=== PATIENT | female | born 1955 | race Asian ===

== ENCOUNTER 2018-05-30 07:11 | Day surgery (SDC) | payer SELFPAY ==
[2018-05-27 13:23] VITALS: BMI 26.0
[2018-05-30] MEDS ORDERED: EPINEPHrine/PF 1 MG/1 ML (1:1,000) AMPULE ONE (08:05)
[2018-05-30] MEDS ORDERED: LIDOCAINE HCL 1%, 10 MG/ML (20ML VIAL) ONE ×2 (08:05→08:09)
[2018-05-30] MEDS ORDERED: HALOPERIDOL LACTATE 5 MG/ML ONE (09:38)
[2018-05-30] MEDS ORDERED: MIDAZOLAM HCL 2 MG/2 ML SINGLE DOSE VIAL ONE (09:38)
[2018-05-30] MEDS ORDERED: PROPOFOL 20 ML ONE ×3 (09:42)
[2018-05-30] MEDS ORDERED: SUCCINYLCHOLINE CHLORIDE 200 MG/10 ML VIAL ONE (09:42)
[2018-05-30] MEDS ORDERED: ROCURONIUM BROMIDE 50 MG/5 ML VIAL ONE (09:42)
[2018-05-30] MEDS ORDERED: fentaNYL CITRATE 250 MCG/5 ML VIAL ONE (09:42)
[2018-05-30] MEDS ORDERED: LABETALOL HCL 5 MG/1 ML (100MG/20 ML VIAL) ONE (10:53)
[2018-05-30] MEDS ORDERED: ONDANSETRON 4 MG/2 ML VIAL IVPUSH PRN ×2 (11:23→12:48)
[2018-05-30] MEDS ORDERED: oxyCODONE HCL 5 MG TABLET PO PRN (11:23)
[2018-05-30] MEDS ORDERED: LACTATED RINGERS SOLUTION 1,000 ML IV SCH (11:30)
[2018-05-30] MEDS ORDERED: NEOSTIGMINE METHYLSULFATE 0.5 MG/ML - 10 ML MDV ONE (11:54)
[2018-05-30] MEDS ORDERED: ONDANSETRON 4 MG/2 ML VIAL ONE (12:22)
[2018-05-30] MEDS ORDERED: ALPRAZolam 0.25 MG TABLET PO PRN (12:54)
[2018-05-30] MEDS ORDERED: diphenhydrAMINE HCL 25 MG CAPSULE (FP) PO PRN (12:54)
[2018-05-30] MEDS ORDERED: DEXTROSE 5%-0.45% SALINE 1,000 ML IV SCH ×2 (13:00→17:00)
--- NOTE | 2018-05-30 13:02 | OP ---
Operative Note - Note: Operative Date: 05/30/18 Pre-Operative Diagnosis: excess skin Operation: abdominoplasty, liposuction of thighs, flanks, and back bra(sides) Surgeon: Eugenio Laird Investigative Analyst: Zohreh Murphy Anesthesiologist/SUGAR BOILER: Alley Vital Anesthesia: General Estimated Blood Loss (mls): 30 Fluid Volume Replaced (mls): 2,000 Operative Report Dictated: Yes
[2018-05-30] MEDS ORDERED: oxyCODONE HCL 5 MG TABLET ONE (14:48)
[2018-05-30] MEDS: oxyCODONE HCL 5 MG TABLET PO PRN ×2 (15:13→18:20)
[2018-05-30] MEDS ORDERED: FAMOTIDINE 20 MG/50 ML IVPB 20 MG/50 ML MG IVPB ONE (17:00)
[2018-05-30] MEDS ORDERED: PROMETHAZINE HCL 25 MG/1 ML VIAL IVPUSH ONE (17:00)
[2018-05-30] MEDS: ACETAMINOPHEN 325 MG TABLET (FP) PO SCH ×2 (18:20→21:37)
[2018-05-30] MEDS ORDERED: ZOLPIDEM TARTRATE 5 MG TABLET PO PRN (22:00)
[2018-05-31] MEDS: ACETAMINOPHEN 325 MG TABLET (FP) PO SCH ×3 (02:25→09:19)
[2018-05-31] MEDS: oxyCODONE HCL 5 MG TABLET PO PRN ×2 (05:02→09:19)
[2018-05-31] MEDS ORDERED: PATIENT'S OWN MEDICATION (NON-FORMULARY) (Meloxicam [Meloxicam] 15 MG) PO SCH (10:00)
[2018-05-31] MEDS ORDERED: DULoxetine HCL 30 MG CAPSULE.DR (FP) PO SCH (10:00)
[2018-05-31 10:32] VITALS: BP 133/74; PULSE 88; TEMP 98
--- NOTE | 2018-05-31 12:14 | OP ---
DATE OF OPERATION: 05/30/2018 SURGEON: Dayron Laird M.D. TUBE CLEANING OPERATOR SURGEON: Zohreh Murphy PA-C PREOPERATIVE DIAGNOSIS: Cosmetic deformity of abdomen, flanks and thighs. POSTOPERATIVE DIAGNOSIS: Cosmetic deformity of abdomen, flanks and thighs. OPERATIVE PROCEDURE: 1. Abdominoplasty. 2. Suction-assisted lipectomy of flanks, back and inner thighs. OPERATIVE INDICATION: Patient is a 63-year-old female who desired correction of her abdominal wall deformity. The risks and benefits of surgical, versus non-surgical alternatives, as well as the material complications of the procedures above were discussed with the patient on multiple occasions preoperatively. She agreed to the planned procedure. All questions were asked and answered. Patient was again explained the procedure in the holding area the day of the surgery and markings were made in the standing position for outline of the incisions and ultimate scar placement. OPERATIVE PROCEDURE IN DETAIL: Patient was taken to the operating room and after induction of general anesthesia in supine position both arms were extended and padded. Venodyne boots were placed. Prepping and draping of the entire abdominal wall, flanks, hips and thighs were carried out. All areas for inclusion were prepped and draped and then attention was turned to the incisions. These were re-measured and remarked on the table to confirm the markings, which were made in the standing position, which were reconfirmed. At this point, 1% local lidocaine anesthesia with 1:100,000 epinephrine was injected into the planned incisions on the lower abdomen and a dilute solution for tumescent liposuction was injected into the areas of the flanks, hips, back and thighs. A suction-assisted lipectomy, after 10 minutes of topical anesthesia and hemostasis, was carried out removing approximately 1000 mL of fatty material from the flanks, inner thighs, back and hips. When this was accomplished, good contour was seen in these areas. Incisions were made in the abdominal wall markings ion the lower abdomen down through the skin to the subcutaneous tissue then a block of tissue at the fascial level was removed from the lower abdomen. The umbilicus was circumscribed and dropped back. The area of Anup fascia was left over the vessels in the lower inguinal area bilaterally for lymphatic drainage and dissection was carried superiorly along the midline up to the xiphoid and minimally laterally in order to preserve the blood supply. Once this was accomplished, hemostasis was obtained throughout and then plication of the abdominal wall and diastasis was carried out using a 0 V-Loc suture in 2-layered fashion above and below the umbilicus separately. Copious irrigation and hemostasis again obtained and then two 19 Xavier drains were placed into the abdominal wall area and then an advancement flap was created by putting the patient into the semi-Aguilar sitting position and then closing the abdominal wall into its new anatomic position. This was carried out using 2-0 Vicryl sutures in interrupted fashion on the Anup fascia, 3-0 PDS on the deep dermal fascia and 4-0 Biosyn in a subcutaneous fashion. The umbilicus was brought out into its new anatomic position using 3-0 Monocryl and 5-0 nylon sutures in a running fashion. Good shape and contour was seen in all areas. She tolerated the procedure well. The area of the lateral breast and axillary area was liposuctioned with the lateral portion in the breast itself and this tissue was contoured to a pleasing contour. All areas were dressed sterilely and a separate incision was made in the inframammary crease on both inframammary folds. These wounds were closed in layers. Dermabond and Steri-Strips were placed over all the wounds and then a binder and a surgery bra was placed on the patient. She was awakened, extubated and transferred to semi-Aguilar's bed position in the operating room. She tolerated the procedure well. DAYRON LAIRD M.D. [id number]
== END 2018-05-31 15:00 | disposition home or self-care (01) ==
LOC: FASU 07:11 → FM/S 07:11 → FASUSAT 05-31 15:00
PROVIDERS: ATTEND Plastic Surgery
PROC: 0J073ZZ Alteration of Back Subcutaneous Tissue and Fascia, Percutaneous Approach (ICD-10-PCS; 2018-05-30)
PROC: 0J0M3ZZ Alteration of Left Upper Leg Subcutaneous Tissue and Fascia, Percutaneous Approach (ICD-10-PCS; 2018-05-30)
PROC: 0J0L3ZZ Alteration of Right Upper Leg Subcutaneous Tissue and Fascia, Percutaneous Approach (ICD-10-PCS; 2018-05-30)
PROC: 0J080ZZ Alteration of Abdomen Subcutaneous Tissue and Fascia, Open Approach (ICD-10-PCS; principal; 2018-05-30 09:00)
PROC: 0J083ZZ Alteration of Abdomen Subcutaneous Tissue and Fascia, Percutaneous Approach (ICD-10-PCS; 2018-05-30 09:00)
DX: Z41.1 Encounter for cosmetic surgery (principal); M95.8 Other specified acquired deformities of musculoskeletal system